=== PATIENT | female | born 1960 | race Caucasian/White ===

== ENCOUNTER → 2023-10-11 15:37 | Outpatient (REF) | payer BC, SELFPAY ==
[2023-10-11 16:19] LABS: % Basophils 1.1 % (0-2); % Eosinophils 3.2 % (0-6); % Immature Granulocytes 0.2 % (0-0.5); % Lymphocytes 35.1 % (20.5-51.1); % Monocytes 11.6 % (1.7-9.3); % Neutrophils 48.8 % (42.2-75.2); Absolute Basophils 0.1 10^3/uL (0-0.2); Absolute Eosinophils 0.2 10^3/uL (0-0.7); Absolute Monocytes 0.7 10^3/uL (0.1-0.6); Absolute Neutrophils 2.7 10^3/uL (1.4-6.5); Hematocrit 38.8 % (37.0-47.0); Hemoglobin 12.8 g/dL (12.0-16.0); Mean Corpuscular Hgb 27.1 pg (27.0-31.0); Mean Platelet Volume 9.6 fL (7.4-10.4); Nucleated Red Blood Cells % 0 %; Platelet Count 242 10^3/uL (130-400); Red Blood Cell Count 4.73 10^6/uL (4.20-5.40); Red Cell Dist. Width 16.2 % (11.5-14.5); White Blood Cell Count 5.6 10^3/uL (4.8-10.8)
[2023-10-15 14:38] LABS: Lyme Ab Western Blot IgG Negative (Negative); Lyme Ab Western Blot IgM Negative (Negative)
[2023-10-16 10:57] LABS: IgA 135 mg/dL (68-408); IgG 1118 mg/dL (768-1632); IgM 36 mg/dL (35-263)
[2023-10-16 12:54] LABS: Albumin 4.51 g/dL (3.75-5.01); Alpha 1 Globulin 0.27 g/dL (0.19-0.46); SPEP IFE Reflex IFE Done; Total Protein-Electrophoresis 7.4 g/dL (6.3-8.2)
== END ==
LOC: REG 15:37
PROVIDERS: ATTENDING PHYSICIAN Internal Medicine Rheumatology; FAMILY PHYSICIAN Physician Assistant Medical
DX: M06.00 Rheumatoid arthritis without rheumatoid factor, unspecified site (principal); M35.9 Systemic involvement of connective tissue, unspecified; Z51.81 Encounter for therapeutic drug level monitoring
CPT/HCPCS: 36415; 82784; 84155; 84165; 85025; 86140; 86334; 86617

== ENCOUNTER → 2023-12-03 07:03 | Outpatient (REF) | payer BC, SELFPAY ==
[2023-12-05 16:05] LABS: 24 Hour Urine Total Volume Random mL; Urine Collection Length Random hr; Urine Free Kappa Light Chains 1.99 mg/L (0.00-32.90); Urine Free Lambda Light Chains <0.74 mg/L (0.00-3.79)
[2023-12-06 05:30] LABS: Albumin 3.74 g/dL (3.75-5.01); Alpha 1 Globulin 0.27 g/dL (0.19-0.46); Alpha 2 Globulin 0.72 g/dL (0.48-1.05); Free Kappa Light Chains,Quant 11.46 mg/L (3.30-19.40); Free Lambda Light Chains,Quant 10.84 mg/L (5.71-26.30); IgA 101 mg/dL (68-408); IgG 861 mg/dL (768-1632); IgM 29 mg/dL (35-263); Immunofixation Electrophoresis IFE Done; Kappa/Lambda Fr Light Ratio 1.06 (0.26-1.65); Monoclonal Protein 0.45 g/dL (<=0.00); Total Protein-Electrophoresis 6.4 g/dL (6.3-8.2)
== END ==
LOC: HWRAD 07:03
PROVIDERS: ATTENDING PHYSICIAN Internal Medicine Rheumatology; FAMILY PHYSICIAN Physician Assistant Medical
DX: Z51.81 Encounter for therapeutic drug level monitoring (principal); M54.2 Cervicalgia
CPT/HCPCS: 72050; 73564; 82784; 83521; 84155; 84156; 84165; 86334; 86335

== ENCOUNTER → 2024-03-11 16:19 | Outpatient (REF) | payer BC, SELFPAY | LOC: WDC 16:19 | PROVIDERS: ATTENDING PHYSICIAN Obstetrics & Gynecology; FAMILY PHYSICIAN Physician Assistant Medical | DX: Z12.31 Encounter for screening mammogram for malignant neoplasm of breast (principal) | CPT/HCPCS: 77063; 77067 ==

== ENCOUNTER → 2024-03-31 06:49 | Outpatient (REF) | payer BC, SELFPAY ==
[2024-03-31 09:45] LABS: % Eosinophils 2.5 % (0-6); % Immature Granulocytes 0.3 % (0-0.5); % Monocytes 9.6 % (1.7-9.3); % Neutrophils 51.6 % (42.2-75.2); Absolute Basophils 0.1 10^3/uL (0-0.2); Absolute Eosinophils 0.2 10^3/uL (0-0.7); Absolute Lymphocytes 2.2 10^3/uL (1.2-3.4); Absolute Monocytes 0.6 10^3/uL (0.1-0.6); Absolute Neutrophils 3.2 10^3/uL (1.4-6.5); Hemoglobin 12.6 g/dL (12.0-16.0); Mean Corp Hgb Conc. 32.3 g/dL (33.0-37.0); Mean Corpuscular Hgb 26.4 pg (27.0-31.0); Mean Corpuscular Volume 81.6 fL (81.0-99.0); Mean Platelet Volume 9.8 fL (7.4-10.4); Nucleated Red Blood Cells % 0 %; Platelet Count 228 10^3/uL (130-400); Red Blood Cell Count 4.78 10^6/uL (4.20-5.40); Red Cell Dist. Width 16.4 % (11.5-14.5); White Blood Cell Count 6.3 10^3/uL (4.8-10.8)
[2024-03-31 10:03] LABS: ALT (SGPT) 18 U/L (0-35); AST (SGOT) 21 U/L (14-36); Albumin 4.2 g/dl (3.5-5.0); Alkaline Phosphatase 70 U/L (38-126); Blood Urea Nitrogen 14 mg/dl (7-17); Calcium 9.5 mg/dl (8.4-10.2); Carbon Dioxide 26 mmol/L (22-30); Chloride 104 mmol/L (98-107); Glucose 88 mg/dl (70-99); HDL Cholesterol 61 mg/dl; LDL Cholesterol, Calculated 90 mg/dl; Sodium 136 mmol/L (135-145); Total Bilirubin 0.5 mg/dl (0.2-1.3); Total Cholesterol 174 mg/dl (50-199); Total Protein 6.8 g/dl (6.3-8.2); Triglyceride 119 mg/dl (10-149); Very Low Density Lipoprotein 23 mg/dl (0-30); eGFR > 60.00
[2024-03-31 10:32] LABS: TSH 4.42 uIU/ml (0.47-4.68)
== END ==
LOC: HWLAB 06:49
PROVIDERS: ATTENDING PHYSICIAN Physician Assistant Medical
DX: Z00.00 Encounter for general adult medical examination without abnormal findings (principal)
CPT/HCPCS: 36415; 80053; 80061; 84443; 85025

== ENCOUNTER 2024-09-17 06:36 | Day surgery (SDC) | payer BC, SELFPAY | END 2024-09-17 08:46 | disposition home or self-care (01) | LOC: GI 06:36 | PROVIDERS: ATTENDING PHYSICIAN Internal Medicine | DX: Z12.11 Encounter for screening for malignant neoplasm of colon (principal); D12.0 Benign neoplasm of cecum; K63.5 Polyp of colon; Z86.0101 Personal history of adenomatous and serrated colon polyps | CPT/HCPCS: 45385; 45380; 88305 ==

== ENCOUNTER → 2024-10-14 14:54 | Outpatient (REF) | payer BC, SELFPAY | LOC: RAD 14:54 | PROVIDERS: ATTENDING PHYSICIAN Internal Medicine Rheumatology; FAMILY PHYSICIAN Physician Assistant Medical | DX: M81.0 Age-related osteoporosis without current pathological fracture (principal) | CPT/HCPCS: 77080 ==

== ENCOUNTER → 2024-11-23 06:58 | Outpatient (REF) | payer BC, SELFPAY ==
[2024-11-23 09:47] LABS: % Basophils 1.7 % (0-2); % Eosinophils 3.6 % (0-6); % Immature Granulocytes 0.2 % (0-0.5); % Lymphocytes 30.5 % (20.5-51.1); % Monocytes 10.7 % (1.7-9.3); % Neutrophils 53.3 % (42.2-75.2); Absolute Basophils 0.1 10^3/uL (0-0.2); Absolute Eosinophils 0.2 10^3/uL (0-0.7); Absolute Lymphocytes 1.3 10^3/uL (1.2-3.4); Absolute Monocytes 0.4 10^3/uL (0.1-0.6); Absolute Neutrophils 2.2 10^3/uL (1.4-6.5); Hematocrit 39.5 % (37.0-47.0); Hemoglobin 12.8 g/dL (12.0-16.0); Mean Corp Hgb Conc. 32.4 g/dL (33.0-37.0); Mean Corpuscular Hgb 27.5 pg (27.0-31.0); Mean Corpuscular Volume 84.8 fL (81.0-99.0); Mean Platelet Volume 10.2 fL (7.4-10.4); Nucleated Red Blood Cells % 0 %; Platelet Count 210 10^3/uL (130-400); Red Blood Cell Count 4.66 10^6/uL (4.20-5.40); Red Cell Dist. Width 15.5 % (11.5-14.5); White Blood Cell Count 4.1 10^3/uL (4.8-10.8)
[2024-11-23 10:06] LABS: ALT (SGPT) 26 U/L (0-35); AST (SGOT) 24 U/L (14-36); Albumin 4.1 g/dl (3.5-5.0); Alkaline Phosphatase 69 U/L (38-126); Blood Urea Nitrogen 9 mg/dl (7-17); Calcium 9.8 mg/dl (8.4-10.2); Carbon Dioxide 23 mmol/L (22-30); Chloride 108 mmol/L (98-107); Glucose 98 mg/dl (70-99); Iron 110 ug/dl (37-170); Potassium 3.9 mmol/L (3.5-5.1); Sodium 140 mmol/L (135-145); Total Bilirubin 0.7 mg/dl (0.2-1.3); Total Protein 6.6 g/dl (6.3-8.2); eGFR > 60.00
[2024-11-23 10:16] LABS: Percent Saturation 23 % (20-50); Total Iron Binding Capacity 469 ug/dl (265-497)
[2024-11-23 10:29] LABS: Ferritin 8.5 ng/ml (11.1-264.0)
[2024-11-23 10:46] LABS: Erythrocyte Sed Rate 7 mm/hour (0-20)
[2024-11-24 12:35] LABS: Beta-2-Microglobulin 1.6 mg/L (<=3.0)
[2024-11-25 13:47] LABS: Albumin 4.05 g/dL (3.75-5.01); Alpha 1 Globulin 0.25 g/dL (0.19-0.46); Alpha 2 Globulin 0.65 g/dL (0.48-1.05); Free Kappa Light Chains,Quant 11.99 mg/L (3.30-19.40); Free Lambda Light Chains,Quant 9.97 mg/L (5.71-26.30); IgA 94 mg/dL (68-408); IgG 884 mg/dL (768-1632); IgM 33 mg/dL (35-263); Immunofixation Electrophoresis IFE Done; Total Protein-Electrophoresis 6.6 g/dL (6.3-8.2)
== END ==
LOC: HWLAB 06:58
PROVIDERS: ATTENDING PHYSICIAN Internal Medicine Hematology & Oncology; FAMILY PHYSICIAN Physician Assistant Medical
DX: D47.2 Monoclonal gammopathy (principal)
CPT/HCPCS: 36415; 80053; 82232; 82728; 82784; 83521; 83540; 83550; 84155; 84165; 85025; 85652; 86334

== ENCOUNTER → 2024-12-23 06:43 | Outpatient (REF) | payer BC, SELFPAY ==
[2024-12-23 09:43] LABS: Hematocrit 39.1 % (37.0-47.0); Mean Corp Hgb Conc. 33.2 g/dL (33.0-37.0); Mean Corpuscular Hgb 28.2 pg (27.0-31.0); Mean Corpuscular Volume 84.8 fL (81.0-99.0); Platelet Count 207 10^3/uL (130-400); Red Blood Cell Count 4.61 10^6/uL (4.20-5.40); Red Cell Dist. Width 14.9 % (11.5-14.5); White Blood Cell Count 6.1 10^3/uL (4.8-10.8)
[2024-12-23 10:31] LABS: ALT (SGPT) 21 U/L (0-35); AST (SGOT) 22 U/L (14-36); Albumin 4.2 g/dl (3.5-5.0); Alkaline Phosphatase 60 U/L (38-126); Blood Urea Nitrogen 8 mg/dl (7-17); Calcium 9.2 mg/dl (8.4-10.2); Carbon Dioxide 23 mmol/L (22-30); Chloride 106 mmol/L (98-107); Glucose 97 mg/dl (70-99); Potassium 4.1 mmol/L (3.5-5.1); Sodium 139 mmol/L (135-145); Total Bilirubin 0.5 mg/dl (0.2-1.3); Total Protein 6.6 g/dl (6.3-8.2); eGFR > 60.00
== END ==
LOC: HWLAB 06:43
PROVIDERS: ATTENDING PHYSICIAN Physician Assistant Medical
DX: R11.0 Nausea (principal)
CPT/HCPCS: 36415; 80053; 85027

== ENCOUNTER → 2025-01-20 17:23 | Outpatient (REF) | payer BC, SELFPAY | LOC: CLAB 17:23 | PROVIDERS: ATTENDING PHYSICIAN Physician Assistant | DX: R39.9 Unspecified symptoms and signs involving the genitourinary system (principal) | CPT/HCPCS: 87086; 87088 ==

== ENCOUNTER 2025-03-31 05:51 | Day surgery (SDC) | payer BC, SELFPAY ==
--- NOTE | 2025-03-09 14:20 | CM ---
Addendum entered by Rhea Al RN 03/10/25 13:24:
Maria M reviewed medical records. Patient confirmed demographics. Patient lives independently with . Patient does not have a history of VN< SNF or DME. Patient is aware to purchase medication equipment through [employer]. Patient will schedule
outpatient PT appointments at [facility].
Patient is active with her PCP. Patient plans to use [facility] for medication services.
PL[facility]
Original Note:
MARIA M reviewed medical records. CM left message to discuss discharge planning.
[2025-03-12 14:04] VITALS: BMI 34.5
[2025-03-12 14:41] LABS: Hematocrit 37.7 % (37.0-47.0); Hemoglobin 12.0 g/dL (12.0-16.0); Mean Corp Hgb Conc. 31.8 g/dL (33.0-37.0); Mean Corpuscular Volume 85.1 fL (81.0-99.0); Platelet Count 251 10^3/uL (130-400); Red Cell Dist. Width 14.4 % (11.5-14.5)
[2025-03-12 15:24] LABS: ALT (SGPT) 22 U/L (0-35); AST (SGOT) 27 U/L (14-36); Albumin 4.7 g/dl (3.5-5.0); Alkaline Phosphatase 59 U/L (38-126); Blood Urea Nitrogen 13 mg/dl (7-17); Calcium 9.7 mg/dl (8.4-10.2); Carbon Dioxide 27 mmol/L (22-30); Chloride 104 mmol/L (98-107); Estimated Creatinine Clearance 97 ml/min; Glucose 97 mg/dl (70-99); Potassium 5.0 mmol/L (3.5-5.1); Sodium 138 mmol/L (135-145); Total Protein 7.7 g/dl (6.3-8.2); eGFR > 60.00
[2025-03-12 17:04] VITALS: BMI 34.5
[2025-03-13 14:43] LABS: Glycohemoglobin (HgbA1c) 5.3 % (4.0-5.6)
--- NOTE | 2025-03-17 09:38 | VNURNOTE ---
Patient is scheduled for an elective R TKA on 03/31 - she is a same day patient with Dr Velez. Spoke with patient prior to surgery. Introduced role of [facility] Liaison. Patient reports that she lives with her spouse in a split level home.
She has toilet rails, cane and rolling walker.
Discussed [facility] joint protocol and post surgical plans.
Reviewed that she will have VN services initially and will then start outpatient PT.
Patient selects [facility] for home care needs and [facility]. Scheduled for 04/02, she is aware to re-schedule for the Saturday after surgery (04/05) -as advised by Ortho MANINDER.
Patient is in agreement with plan and states that her spouse will be home with her. Advised to bring RW day of surgery. Referral placed in [facility].
Plan: [facility] per [facility] joint protocol 03/31 then outpt PT at [facility]
[2025-03-31] VITALS (24 sets, daily range): BP systolic 92–151; BP diastolic 56–87; BMI 34.5
[2025-03-31] MEDS: NORMOSOL-R/PLASMALYTE-A 1000 IV ×2 (06:28→09:00)
[2025-03-31] MEDS: CELEBREX 200 MG PO (06:28)
[2025-03-31] MEDS: TYLENOL 650 MG PO ×4 (06:28→23:14)
--- NOTE | 2025-03-31 07:44 | W.DS.TRANS ---
DC Summary - Customer Relationship Specialist
-
Discharge Instructions:
Sleep Apnea Risk Low
Discharge Diagnosis/Procedures R TKA Dr. Velez 03/31/25
Diet As tolerated
Activity With Walker
Driving Restrictions No driving
Bathing Restrictions OK to Shower
Other Services PT
Instructions:
Stand-Alone Forms: SDS Total Hip and Knee D/C
Changes to Home Medications: Yes
Discharge Medications:
DC Medications w/original date entered in [facility]
omeprazole magnesium 20 mg tablet,delayed release (Prilosec OTC) 20 mg PO DAILY 10/19/13
Vitamin C 1 dose PO DAILY 03/11/25
calcium 500 mg (as carbonate)-vitamin D3 3.125 mcg (125 unit) tablet 2 tab PO DAILY 03/11/25
cyclosporine 0.05 % eye drops in a dropperette (Restasis) 1 drp ophthalmic (eye) BID 03/11/25
estradiol 10 mcg vaginal tablet (Yuvafem) 10 mcg vaginal MOTH 03/11/25
hydroxychloroquine 200 mg tablet (Plaquenil) 400 mg PO DAILY 03/11/25
melatonin 5 mg capsule 5 - 10 mg PO HS PRN sleep 03/11/25
vitamin B complex 1 cap PO DAILY 03/11/25
cefadroxil 500 mg capsule 500 mg PO BID #14 caps 03/12/25
dexamethasone 4 mg tablet 4 mg PO BID Anti-inflammatory #7 tabs 03/12/25
meloxicam 15 mg tablet 15 mg PO DAILY #14 tabs 03/12/25
mupirocin 2 % topical ointment 1 applic intranasal BID #1 tube 03/12/25
oxycodone 5 mg tablet 5 - 10 mg (1 - 2 x 5 mg) PO Q6H PRN moderate-severe pain #30 tabs 03/12/25
prochlorperazine maleate 5 mg tablet (Compazine) 5 mg PO TID PRN nausea and vomiting #30 tabs 03/12/25
Losartan 100 mg PO HS ##0 03/31/25
Saccharomyces boulardii 250 mg capsule (Florastor) 250 mg PO BID #1 cap 03/31/25
acetaminophen 650 mg tablet,extended release 650 mg PO QID #0 tabs 03/31/25
aspirin 325 mg tablet 325 mg PO DAILY blood clot prevention #1 tab 03/31/25
docusate sodium 100 mg capsule (Colace) 100 mg PO BID stool softner #1 cap 03/31/25
gabapentin 100 mg capsule 200 mg (2 x 100 mg) PO HS pain #0 caps 03/31/25
magnesium hydroxide 400 mg/5 mL oral suspension (Milk of Magnesia) 30 ml PO HS PRN constipation #1 mL 03/31/25
sennosides 8.6 mg tablet (Senokot) 17.2 mg (2 x 8.6 mg) PO BID laxative #2 tabs 03/31/25
tramadol 50 mg tablet 50 mg PO BID scheduled dosingx 1 week #0 tabs 03/31/25
Home Medication Changes
cefadroxil 500 mg capsule 500 mg PO BID #14 caps 03/12/25
dexamethasone 4 mg tablet 4 mg PO BID Anti-inflammatory #7 tabs 03/12/25
meloxicam 15 mg tablet 15 mg PO DAILY #14 tabs 03/12/25
mupirocin 2 % topical ointment 1 applic intranasal BID #1 tube 03/12/25
oxycodone 5 mg tablet 5 - 10 mg (1 - 2 x 5 mg) PO Q6H PRN moderate-severe pain #30 tabs 03/12/25
prochlorperazine maleate 5 mg tablet (Compazine) 5 mg PO TID PRN nausea and vomiting #30 tabs 03/12/25
Losartan 100 mg PO HS ##0 03/31/25
Saccharomyces boulardii 250 mg capsule (Florastor) 250 mg PO BID #1 cap 03/31/25
acetaminophen 650 mg tablet,extended release 650 mg PO QID #0 tabs 03/31/25
aspirin 325 mg tablet 325 mg PO DAILY blood clot prevention #1 tab 03/31/25
docusate sodium 100 mg capsule (Colace) 100 mg PO BID stool softner #1 cap 03/31/25
gabapentin 100 mg capsule 200 mg (2 x 100 mg) PO HS pain #0 caps 03/31/25
magnesium hydroxide 400 mg/5 mL oral suspension (Milk of Magnesia) 30 ml PO HS PRN constipation #1 mL 03/31/25
sennosides 8.6 mg tablet (Senokot) 17.2 mg (2 x 8.6 mg) PO BID laxative #2 tabs 03/31/25
tramadol 50 mg tablet 50 mg PO BID scheduled dosingx 1 week #0 tabs 03/31/25
Pending Results: No
[2025-03-31] MEDS: ROXICODONE 5 MG PO (09:54)
[2025-03-31] MEDS: ANCEF 5 IV ×2 (11:00→20:28)
[2025-03-31] MEDS: NORMOSOL-R/PLASMALYTE-A 500 IV (12:45)
[2025-03-31] MEDS: DECADRON 4 MG IV ×2 (12:59→20:55)
[2025-03-31] MEDS: TRANSDERM-SCOP 1 PATCH TRANSDERM (13:01)
[2025-03-31] MEDS: TORADOL 15 MG IV ×2 (13:02→20:55)
[2025-03-31] MEDS: NSS (PRESERVATIVE FREE) 10 ML IV (13:08)
[2025-03-31] MEDS: PROTONIX IV 40 MG IV (13:08)
--- NOTE | 2025-03-31 15:03 | W.PN.ORTHO ---
Today's Communication / Plan
-
d/c if PVR <420 and no orthostasis
Assessment
.
Distal Motor Intact: Yes
Dressing:
Clean, dry and intact.
Assessment:
N/V
Orthostasis
-IVF+Midrdrine+Scopolomine
-change pain med to Ultram and continue Decadron, Tordol, Gabapentin hs
Urinary retention-BP will not tolerate Flomax at present-may dose later with Midodrine-voiding trial prior to d/c
Plan
.
Surgery / Date: R JAMISON Velez 03/31/25
DVT Prophylaxis: Aspirin
Activity:
Out of bed.
PT/OT
Discharge Plan: Home w/ Outpatient PT
Subjective
.
.:
N/V dizzy when standing
Vital Signs and Labs
.
Vital Signs and Labs:
Lab Results
03/12/25 12:49
03/12/25 12:49
Temp Pulse Resp BP Pulse Ox
97.5 F 93 16 147/85 96
03/31/25 08:45 03/31/25 14:59 03/31/25 14:59 03/31/25 14:59 03/31/25 14:59
Physical Exam
-
HEENT: No pallor, cyanosis, or jaundice. Throat clear.
NECK: Supple. No JVD.
RESPIRATORY: Lungs clear to auscultation.
CVS: S1, S2 normal. RRR.� No murmur, rub or gallop.
ABDOMEN: Soft, non-tender. No distension. BS+/normal.
EXTREMITIES: strength equal, no calf pain with palpation
BLOCK CAPTAIN: AOx3. No focal deficits. core driller helper grossly intact
--- NOTE | 2025-03-31 16:15 | PTCARENOTE ---
pt unable to pass PT due to nausea and vagal s/s. (see SDS documentation) . Now awaiting an available inpt bed, Verónica Lucas and Dr Velez aware. PT Gretchen Madden communicated with outpt PT, and pt+ relayed info that outpt PT can see her
Fr, Sat, Sun if going home tomorrow 03/31. Then Outpatient PT will start Saturday as already planned. Mendoza Benites RN
[2025-03-31] MEDS: ULTRAM 50 MG PO (19:02)
[2025-03-31] MEDS: ASPIRIN 325 MG PO (19:02)
--- NOTE | 2025-03-31 20:00 | PTCARENOTE ---
Pt a 64y/o F pt post RTKA, Spinal plus IO morphine, ebl 5cc. Pt arrived on 2S at 20:00. PMH includes: Osteoarthritis, HTN, HLD, Chronic esophagitis and gastritis, Hiatal hernia, Remote GI ulcer without bleed. Colon polyps, Fatty liver disease, Right
foot neuropathy. Multilevel degenerative disc disease, Rheumatoid arthritis, Sjogren syndrome, Squamous cell carcinoma, status post excision, History of recurrent UTIs, Anxiety, Insomnia, Obesity, BMI 34.4, Remote history of infrequent tobacco
abuse. Pt AOx3, bed in a low position, pain assessed, ice given for surgical site, call light in reach, care on going.
[2025-03-31] MEDS: TYLENOL PO (20:30)
[2025-03-31] MEDS: COLACE 100 MG PO (20:30)
[2025-03-31] MEDS: SENOKOT 17.2 MG PO (20:30)
[2025-03-31] MEDS: COMPAZINE 5 MG IV (20:30)
[2025-03-31] MEDS: BACTROBAN 2% OINTMENT 1 APPLIC NASAL (20:55)
[2025-03-31] MEDS: NEURONTIN 300 MG PO (22:35)
[2025-03-31] MEDS: MELATONIN 10 MG PO (22:35)
[2025-04-01] MEDS: TYLENOL 650 MG PO ×2 (03:13→07:59)
[2025-04-01] MEDS: ANCEF 5 IV (03:14)
[2025-04-01 03:15] VITALS: BP 127/63
[2025-04-01] MEDS: PROTONIX 40 MG PO (07:45)
[2025-04-01] MEDS: TORADOL 15 MG IV (07:58)
[2025-04-01] MEDS: ASPIRIN 325 MG PO (07:59)
[2025-04-01] MEDS: COLACE 100 MG PO (07:59)
[2025-04-01] MEDS: ULTRAM 50 MG PO (07:59)
[2025-04-01] MEDS: SENOKOT 17.2 MG PO (07:59)
[2025-04-01 08:00] VITALS: BP 116/74
[2025-04-01] MEDS: DECADRON 4 MG IV (08:00)
[2025-04-01] MEDS: COMPAZINE 5 MG IV (08:01)
[2025-04-01] MEDS: BACTROBAN 2% OINTMENT 1 APPLIC NASAL (08:01)
--- NOTE | 2025-04-01 08:02 | CM ---
Cm met with patient in room. Patient confirmed demographics. Patient outpatient PT appointment is for 04/05 at [facility]. Patient will be for [facility] for three days post operatively. MARIA M updated [facility] marketing community liaison.
PLAN: [facility].
[2025-04-01] MEDS: PLAQUENIL 400 MG PO (08:04)
[2025-04-01 09:15] VITALS: BP 128/74; BP 130/89; BP 143/75; PULSE 90
[2025-04-01 09:39] VITALS: BP 118/75
--- NOTE | 2025-04-01 10:36 | W.PN.ORTHO ---
Today's Communication / Plan
-
d/c
Assessment
.
Distal Motor Intact: Yes
Dressing:
Clean, dry and intact.
Assessment:
N/V-+Scopolomine--resolved POD#1-Tramadol Rx OP
Orthostasis
-IVF+Midrdrine
-BP stable POD#1-check for orthostasis prior to d/c after 1300 dose
Urinary retention-voiding well POD#1
Plan
.
Surgery / Date: R JAMISON Velez 03/31/25
DVT Prophylaxis: Aspirin
Activity:
Out of bed.
PT/OT
Discharge Plan: Home w/ Outpatient PT
Subjective
.
.:
Patient resting comfortably.
Vital Signs and Labs
.
Vital Signs and Labs:
Lab Results
03/12/25 12:49
03/12/25 12:49
Temp Pulse Resp BP Pulse Ox
98.0 F 74 18 116/74 100
04/01/25 08:00 04/01/25 08:00 04/01/25 08:00 04/01/25 08:00 04/01/25 08:00
Non-invasive Hgb result: 10.9
Physical Exam
-
HEENT: No pallor, cyanosis, or jaundice. Throat clear.
NECK: Supple. No JVD.
RESPIRATORY: Lungs clear to auscultation.
CVS: S1, S2 normal. RRR.� No murmur, rub or gallop.
ABDOMEN: Soft, non-tender. No distension. BS+/normal.
EXTREMITIES: strength equal, no calf pain with palpation
TEACHER OF GIFTED STUDENTS: AOx3. No focal deficits. parts expediter grossly intact
[2025-04-01 11:00] VITALS: BP 121/72
== END 2025-04-01 11:48 | disposition home or self-care (01) ==
LOC: SDS 05:51
PROVIDERS: ATTENDING PHYSICIAN Orthopaedic Surgery; FAMILY PHYSICIAN Physician Assistant Medical; OTHER PHYSICIAN Physician Assistant
DX: M17.11 Unilateral primary osteoarthritis, right knee (principal)
CPT/HCPCS: 27447; 36415; 73560; 80053; 83036; 85027; 87070; 93005; 97162; 97166; 97535; C1713; C1776

== ENCOUNTER 2025-04-14 09:51 | Outpatient (RCR) | payer BC, SELFPAY | END 2025-04-14 23:59 | disposition home or self-care (01) | LOC: RPT 09:51 | PROVIDERS: ATTENDING PHYSICIAN Orthopaedic Surgery; FAMILY PHYSICIAN Physician Assistant Medical | DX: Z47.1 Aftercare following joint replacement surgery (principal); Z73.6 Limitation of activities due to disability; M62.81 Muscle weakness (generalized); M25.561 Pain in right knee; R26.89 Other abnormalities of gait and mobility; Z96.651 Presence of right artificial knee joint | CPT/HCPCS: 97010; 97110; 97116; 97140; 97162; 97530 ==

== ENCOUNTER 2025-05-18 10:13 | Outpatient (RCR) | payer BC, SELFPAY | END 2025-05-18 23:59 | disposition home or self-care (01) | LOC: RPT 10:13 | PROVIDERS: ATTENDING PHYSICIAN Orthopaedic Surgery; FAMILY PHYSICIAN Physician Assistant Medical | DX: Z47.1 Aftercare following joint replacement surgery (principal); Z73.6 Limitation of activities due to disability; M62.81 Muscle weakness (generalized); M25.561 Pain in right knee; R26.89 Other abnormalities of gait and mobility; Z96.651 Presence of right artificial knee joint; M25.661 Stiffness of right knee, not elsewhere classified | CPT/HCPCS: 97110; 97112; 97140; 97530 ==

== ENCOUNTER → 2025-05-26 07:54 | Outpatient (REF) | payer BC, SELFPAY ==
[2025-05-26 09:30] LABS: Hematocrit 36.9 % (37.0-47.0); Hemoglobin 11.5 g/dL (12.0-16.0); Mean Corp Hgb Conc. 31.2 g/dL (33.0-37.0); Mean Corpuscular Volume 82.6 fL (81.0-99.0); Nucleated Red Blood Cells % 0 %; Platelet Count 232 10^3/uL (130-400); Red Cell Dist. Width 15.3 % (11.5-14.5)
[2025-05-26 09:42] LABS: ALT (SGPT) 20 U/L (0-35); AST (SGOT) 24 U/L (14-36); Albumin 4.4 g/dl (3.5-5.0); Alkaline Phosphatase 61 U/L (38-126); Blood Urea Nitrogen 5 mg/dl (7-17); Calcium 9.3 mg/dl (8.4-10.2); Carbon Dioxide 27 mmol/L (22-30); Chloride 104 mmol/L (98-107); Glucose 86 mg/dl (70-99); Potassium 4.1 mmol/L (3.5-5.1); Sodium 136 mmol/L (135-145); Total Protein 7.0 g/dl (6.3-8.2); eGFR > 60.00
[2025-05-26 09:49] LABS: C-Reactive Protein < 5.00 mg/L (0.0-10.00)
== END ==
LOC: HWLAB 07:54
PROVIDERS: ATTENDING PHYSICIAN Internal Medicine Rheumatology; FAMILY PHYSICIAN Physician Assistant Medical
DX: M35.00 Sjogren syndrome, unspecified (principal); M35.9 Systemic involvement of connective tissue, unspecified; Z51.81 Encounter for therapeutic drug level monitoring
CPT/HCPCS: 36415; 80053; 85025; 86140

== ENCOUNTER 2025-06-18 09:23 | Outpatient (RCR) | payer BC, SELFPAY | END 2025-06-18 23:59 | disposition home or self-care (01) | LOC: RPT 09:23 | PROVIDERS: ATTENDING PHYSICIAN Orthopaedic Surgery; FAMILY PHYSICIAN Physician Assistant Medical | DX: Z47.1 Aftercare following joint replacement surgery (principal); Z73.6 Limitation of activities due to disability; M62.81 Muscle weakness (generalized); M25.561 Pain in right knee; R26.89 Other abnormalities of gait and mobility; M25.661 Stiffness of right knee, not elsewhere classified; Z96.651 Presence of right artificial knee joint | CPT/HCPCS: 97110; 97112; 97140; 97530 ==

== ENCOUNTER 2025-06-25 14:20 | Outpatient (RCR) | payer BC, SELFPAY | END 2025-06-25 23:59 | disposition home or self-care (01) | LOC: RPT 14:20 | PROVIDERS: ATTENDING PHYSICIAN Orthopaedic Surgery; FAMILY PHYSICIAN Physician Assistant Medical | DX: Z47.1 Aftercare following joint replacement surgery (principal); Z73.6 Limitation of activities due to disability; M62.81 Muscle weakness (generalized); M25.561 Pain in right knee; R26.89 Other abnormalities of gait and mobility; M25.661 Stiffness of right knee, not elsewhere classified; Z96.651 Presence of right artificial knee joint | CPT/HCPCS: 97110; 97140 ==

== ENCOUNTER → 2025-07-05 15:34 | Outpatient (REF) | payer BC, SELFPAY | LOC: WDC 15:34 | PROVIDERS: ATTENDING PHYSICIAN Obstetrics & Gynecology; FAMILY PHYSICIAN Physician Assistant Medical | DX: Z12.31 Encounter for screening mammogram for malignant neoplasm of breast (principal) | CPT/HCPCS: 77063; 77067 ==